=== PATIENT | female | born 1970 | race Caucasian/White ===

== ENCOUNTER → 2021-12-04 | Outpatient (CLI) | payer OTHER ==
--- NOTE | 2021-12-04 14:21 | MM ---
Reason for exam: screening (asymptomatic). Last mammogram was performed 4 years ago. Physical Findings: A clinical breast exam by your physician is recommended on an annual basis and results should be correlated with mammographic findings. MG 3D Screening Mammo W/Cad Bilateral CC and MLO view(s) were taken. Prior study comparison: December 02, 2017, mammogram, performed at [facility]. September 30, 2015, mammogram, performed at [facility]. The breast tissue is heterogeneously dense. This may lower the sensitivity of mammography. There is no discrete abnormality. ASSESSMENT: Negative, BI-RAD 1 RECOMMENDATION: Routine screening mammogram of both breasts in 1 year.
[2021-12-04 17:10] LABS: Protein, Total 6.9 g/dL (6.2-8.2)
[2021-12-05 13:51] LABS: APTT 41 Sec(s) (<43); Dilute Russell Viper Venom 40 Sec(s) (<44)
[2021-12-05 14:31] LABS: C-ANCA <1:20 Titer (<1:20)
[2021-12-05 15:48] LABS: Anti-DNA, DS unit <1.0 IU/mL; Anti-Smith Ab Interp NEGATIVE (NEGATIVE); DNA Double-Stranded NEGATIVE (NEGATIVE)
== END | disposition home or self-care (01) ==
LOC: RADMAMWWP 07:06
PROVIDERS: ATTEND Internal Medicine
DX: Z12.31 Encounter for screening mammogram for malignant neoplasm of breast (principal); M35.9 Systemic involvement of connective tissue, unspecified; L53.8 Other specified erythematous conditions
CPT/HCPCS: 77063; 77067; 84165; 85613; 85730; 86038; 86160; 86162; 86225; 86235; 86255; 86334; 86335

== ENCOUNTER → 2023-07-21 | Outpatient (CLI) | payer OTHER ==
--- NOTE | 2023-07-24 06:01 | MR ---
EXAMINATION TYPE: MR knee RT wo con DATE OF EXAM: 07/21/2023 COMPARISON: Outside right knee x-ray July 13, 2023 HISTORY: Right inner knee pain, locking and swelling due to injury at karate July 06. TECHNIQUE: Multiplanar, multisequence images of the knee is performed without IV contrast. FINDINGS: MEDIAL MENISCUS: Subtle increased signal posterior horn medial meniscus appears to extend to the infe rior articular surface. LATERAL MENISCUS: Anterior and posterior horns are intact without tear. CRUCIATE LIGAMENTS: The posterior cruciate ligament is intact and unremarkable. Normal-appearing ante rior cruciate ligament is not seen, full-thickness retracted tear is present. COLLATERAL LIGAMENTS: The medial collateral ligament and lateral collateral ligament complex are inta ct and unremarkable. EXTENSOR MECHANISM: Visualized quadriceps and patellar tendons are intact. EFFUSION: Moderate to large sized suprapatellar joint effusion. POPLITEAL CYST: Moderate to large sized leaking multiseptated popliteal/lopez cyst. TRICOMPARTMENT SPACES: Mild tricompartment joint space loss. No significant spurring. CARTILAGE: Tricompartmental articular cartilage is preserved. BONE MARROW SIGNAL: Approximate 2.5 cm focus of increased T2 signal posterior aspect of the lateral t ibial plateau. OTHER: No additional significant abnormality is appreciated. IMPRESSION: 1. Complete ACL tear. 2. At least intrasubstance but suspected full-thickness tear posterior horn of the medial meniscus. 3. Moderate to large size suprapatellar joint effusion. 4. Moderate to large sized leaking septated popliteal cyst. 5. Small focus of osseous contusion injury posterior aspect of the lateral tibial plateau.
== END | disposition home or self-care (01) ==
LOC: RADMRIMAIN 20:15
PROVIDERS: ATTEND Orthopaedic Surgery
DX: S83.511A Sprain of anterior cruciate ligament of right knee, initial encounter (principal); S83.241A Other tear of medial meniscus, current injury, right knee, initial encounter; S80.01XA Contusion of right knee, initial encounter; M66.0 Rupture of popliteal cyst; Y93.75 Activity, martial arts

== ENCOUNTER → 2023-12-10 | Outpatient (CLI) | payer OTHER ==
[2023-12-10 17:05] LABS: Basophils # (A) 0.02 X 10*3/uL (0.00-0.10); Basophils % (A) 0.4 %; Eosinophils # (A) 0.16 X 10*3/uL (0.04-0.35); Eosinophils % (A) 3.3 %; HCT 43.9 % (37.2-46.3); HGB 14.4 g/dL (12.0-15.0); Lymphocytes # (A) 1.43 X 10*3/uL (0.90-5.00); Lymphocytes % (A) 29.3 %; MCH 30.8 pg (27.0-32.0); MCHC 32.8 g/dL (32.0-37.0); MCV 93.8 FL (80.0-97.0); Mean Platelet Volume 9.9 FL (9.5-12.2); Monocytes # (A) 0.48 X 10*3/uL (0.20-1.00); Monocytes % (A) 9.8 %; NRBC Per 100 WBC 0 X 10*3/uL (0.00-0.01); Neutrophils # (A) 2.77 X 10*3/uL (1.80-7.70); Neutrophils % (A) 56.8 %; Platelet Count 298 X 10*3/uL (140-440); RBC 4.68 X 10*6/uL (4.10-5.20); RDW 12.7 % (11.5-14.5); WBC 4.88 X 10*3/uL (4.50-10.00)
[2023-12-10 17:23] LABS: Potassium 4.5 mmol/L (3.5-5.5)
== END | disposition home or self-care (01) ==
LOC: LABPAT 10:19
PROVIDERS: ATTEND Orthopaedic Surgery
DX: Z01.812 Encounter for preprocedural laboratory examination (principal); M23.91 Unspecified internal derangement of right knee
CPT/HCPCS: 36415; 80051; 85025

== ENCOUNTER 2023-12-16 11:27 | Day surgery (SDC) | payer OTHER ==
[2023-12-13 09:41] VITALS: BMI 28.3
--- NOTE | 2023-12-15 23:57 | HP ---
HISTORY AND PHYSICAL DATE OF SURGERY: 12/16/2023. HISTORY OF PRESENT ILLNESS: Gabriela Cai is a 53-year-old patient who was seen with right knee pain and instability consistent with meniscal tear and anterior cruciate ligament tear. We discussed options regarding treatment. She elected to proceed with right knee arthroscopy to include allograft ACL reconstruction. Consent regarding procedure obtained. PAST MEDICAL HISTORY: Hypertension. PAST SURGICAL HISTORY: Noncontributory. DAILY MEDICATIONS: 1. Lisinopril. 2. Norvasc. 3. Meloxicam. ALLERGIES: Penicillin. SOCIAL HISTORY: She denies tobacco use. PHYSICAL EVALUATION OF THE RIGHT KNEE: Range of motion is 0 to 90 degrees. Mild effusion. Tenderness, medial joint line. Positive medial Philipp's. +1/2 Bisi. Pivot shift positive. Distal neurovascular exam intact. IMAGING STUDIES: Right knee radiographs revealed an effusion. MRI of right knee revealed a medial meniscal tear, anterior cruciate ligament tear, effusion, and popliteal cyst. IMPRESSION: 1. Internal derangement of right knee with medial meniscal tear and anterior cruciate ligament tear. 2. Hypertension. PLAN: Right knee arthroscopy with allograft ACL reconstruction, partial medial meniscectomy and debridement. MMODL / IJN: [id number] /
[2023-12-16] MEDS: LACTATED RINGERS 1,000 ML IV SCH (09:39)
[~2023-12-16 11:27] MED LIST: HYDROmorphone 0.5 MG/0.5 ML SYRINGE IVP PRN
[2023-12-16] MEDS: ONDANSETRON 4 MG/2 ML VIAL IVP ONE (12:43)
[2023-12-16] MEDS: DEXAMETHASONE SOD PHOSPHATE 4 MG/ML 1 ML VIAL IV ONE (12:43)
[2023-12-16] MEDS: MIDAZOLAM 2 MG/2 ML VIAL IVP ONE (12:58)
[2023-12-16 13:01] VITALS: TEMP 97
[2023-12-16] MEDS ORDERED: NEOSTIGMINE 1 MG/ML 10 ML VIAL ONE (13:05)
[2023-12-16] MEDS ORDERED: ROPIVACAINE 5 MG/ML 30 ML VIAL ONE (13:05)
[2023-12-16] MEDS ORDERED: PROPOFOL 10 MG/ML 20 ML VIAL IV ONE (13:05)
[2023-12-16] MEDS ORDERED: LIDOCAINE 1% INJ 10MG/ML (20 ML MDV) ONE (13:05)
[2023-12-16] MEDS ORDERED: SUCCINYLCHOLINE CHLORIDE 200 MG/10 ML VIAL IV ONE (13:05)
[2023-12-16] MEDS ORDERED: PHENYLEPHRINE 10 MG/ML VIAL ONE (13:05)
[2023-12-16] MEDS ORDERED: ePHEDrine 50 MG/ML 1 ML VIAL ONE (13:05)
[2023-12-16] MEDS ORDERED: MIDAZOLAM 2 MG/2 ML VIAL ONE (13:05)
[2023-12-16] MEDS ORDERED: fentaNYL (PF) 50 MCG/ML 2 ML AMP ONE (13:05)
[2023-12-16] MEDS ORDERED: GLYCOPYRROLATE 0.2 MG/ML 2 ML VIAL ONE (13:05)
[2023-12-16] MEDS ORDERED: KETOROLAC 15 MG/ML 1 ML VIAL ONE (13:05)
[2023-12-16] MEDS ORDERED: DEXAMETHASONE SOD PHOSPHATE 4 MG/ML 1 ML VIAL ONE (13:05)
[2023-12-16] MEDS ORDERED: HYDROmorphone (PF) 1 MG/ML ONE (13:05)
[2023-12-16] MEDS: LACTATED RINGERS 1,000 ML IV ONE (14:34)
--- NOTE | 2023-12-16 14:58 | P.OP ---
Date of Procedure: 12/16/23 Preoperative Diagnosis: Internal derangement right knee with anterior cruciate ligament tear Postoperative Diagnosis: 1. Anterior cruciate ligament tear right knee 2. Medial lateral meniscal tears right knee 3. Reactive synovitis medial, lateral and suprapatellar compartments right knee Procedure(s) Performed: 1. Arthroscopic allograft ACL reconstruction right knee 2. Arthroscopic partial medial and lateral meniscectomy right knee 3. Arthroscopic partial synovectomy medial, lateral and suprapatellar compartments right knee Implants: 2Arthrex Endobutton's 1Arthrex 4.75 swivel lock anchor Anesthesia: GETA, regional (Adductor canal block) Surgeon: Jose Antonio Mcnally Reservoir Caretaker #1: Guillermo Quiroz Estimated Blood Loss (ml): 15 Pathology: none sent Condition: stable Disposition: PACU Indications for Procedure: 53-year-old patient seen with right knee pain and symptomatic instability consistent with ACL tear. After discussing options, she elected to proceed with arthroscopy to include allograft ACL reconstruction. Operative Findings: See description of procedure Description of Procedure: Patient was taken to the operative suite after having an adductor canal block performed by the department of anesthesia for postoperative pain management. Patient underwent a general anesthetic by the department of anesthesia. Patient was given preoperative antibiotics. The right lower extremity was placed in a well-padded arthroscopic leg mcmullen. The right leg was prepped and draped in the normal sterile orthopedic fashion. A lateral parapatellar and suprapatellar incision was made. Trochars were inserted. Arthroscopy was initiated. Suprapatellar pouch revealed diffuse thick reactive synovitis. The patellofemoral joint appeared to articulate congruently. There very mild grade I chondromalacia without tears. The scope was guided into the medial gutter. No loose bodies or plica were identified the scope was then guided into the medial compartment. A medial parapatellar incision was made. Trocar inserted followed by probe. There was a radial tear involving the posterior horn of the medial meniscus. There was no chondromalacia. There was thick reactive synovitis anteriorly. Scope and probe were then guided into the intercondylar notch. There was a complete ACL tear present. The PCL appeared stable. At this point the allograft for our ACL reconstruction was opened on the back table and Fernando MAR began repairing the graft for implantation. I guided the scope back into the medial compartment. I performed a partial medial m eniscectomy getting down to stable meniscal tissue. I performed a partial synovectomy. The residual meniscus was stable. There was good decompression of the synovitis. I now got the scope back into the intercondylar notch. I used a motorized shaver and I debrided out the torn ACL. I noted again the PCL to be stable.. The scope and probe were then guided into lateral compartment. I noted a radial tear involving the posterior horn of the lateral meniscus. There was no chondromalacia. There was some thick reactive synovitis anteriorly. I performed a partial lateral meniscectomy getting down to stable meniscal tissue. I performed a partial synovectomy decompressing the reactive synovitis. The residual meniscus was stable. There was good decompression of the synovitis. I now guided the scope back into the intercondylar notch. I now performed a notchplasty. The graft was now ready for implantation. Fernando MAR now assisted me with creating both inside femoral tunnel and inside tibial tunnels. Once we noted adequate positioning of our femoral and tibial tunnels the graft was brought to the operative field. We now introduced the graft and slid into the femoral tunnel visually confirming that the Endobutton flipped on the lateral femur. We now placed about 25 mm of graft into our tunnel. We now shuttled the underside of her graft into our tibial tunnel again making sure we had about 25 to 30 mm of graft inside the tunnel. I now put tension across the tibial tunnel and make sure that the graft was well-seated. I now extended the knee into full extension. We now secured the tibial graft utilizing the Arthrex Endobutton and making sure was secure. We did have a internal brace around the graft. I made a drill hole in the proximal tibia and secured our internal brace with a Arthrex 4.75 swivel lock anchor. All residual suture limbs were clipped. We now took the knee into full extension and tension down our femoral side of the graft as well. I now reintroduced the scope and noted excellent position of the graft. I took the knee through full range of motion noted full extension and flexion with no impingement of the graft. Intraoperatively I noted excellent stability. The scope was in guided back into the suprapatellar compartment. I introduced a motorized shaver into the suprapatellar compartment. I performed a partial synovectomy. The shaver was removed. There was good decompression of the synovitis. I now took 1 more look around the entire knee, no residual debris. Instruments were now removed from the joint. The portal sites were all repaired with nylon suture. The mid medial knee incision was repaired subcutaneously with 3-0 Vicryl and the skin was repaired with 3-0 nylon. Sterile dressings were applied. An Krishna bandage was applied. The patient's extremity was placed into a soft knee immobilizer. No tourniquet was utilized. The patient was awakened, transferred to a bed and taken to recovery stable satisfactory condition. Fernando MAR assisted in all aspects of this procedure.
[2023-12-16] MEDS: HYDROcodone/APAP 7.5-325MG 1 EACH TAB ONE (16:26)
[2023-12-16 17:15] VITALS: BP 119/74; PULSE 75; RESP 20
--- NOTE | 2023-12-16 19:33 | P.ANPRN ---
Procedure Note - Anesthesia - Nerve Block Performed Right Adductor Canal Single Time Out Performed: Yes Date of Procedure: 12/16/23 Procedure Start Time: 12:57 Procedure Stop Time: 13:01 Location of Patient: PreOp Indication: Acute Post-Operative Pain, Requested by Surgeon Sedation Type: Sedate with meaningful contact maintained Preparation: Sterile Prep Position: Supine Needle Types: Pajunk Needle Gauge: 21 Ultrasound used to visualize needle placement: Yes Ultrasound used to observe medication spread: Yes Blood Aspirated: No Pain Paresthesia on Injection Noted: No Resistance on Injection: Normal Image Stored and Saved: Yes Events: Uneventful and Well Tolerated (Ropivacaine 0.5% 20 cc plus dexamethasone 4 mg)
== END 2023-12-16 17:25 | disposition home or self-care (01) ==
LOC: OR 11:27
PROVIDERS: ATTEND Orthopaedic Surgery
DX: S83.511A Sprain of anterior cruciate ligament of right knee, initial encounter (principal); S83.241A Other tear of medial meniscus, current injury, right knee, initial encounter; S83.281A Other tear of lateral meniscus, current injury, right knee, initial encounter; M65.861 Other synovitis and tenosynovitis, right lower leg; M94.261 Chondromalacia, right knee; G89.18 Other acute postprocedural pain; I10 Essential (primary) hypertension; Z88.0 Allergy status to penicillin; Z79.899 Other long term (current) drug therapy; X58.XXXA Exposure to other specified factors, initial encounter
CPT/HCPCS: 64447; 29888; 29880; 29876; C1713 ×5; C1762; J2250; J0330; J1100; J2710; J0690; J2405; J2001; J3010; J1170; J2795; J1885; J2704; J2371